=== PATIENT | female | born 1945 | race Caucasian/White ===

== ENCOUNTER 2025-01-24 12:59 | Inpatient (IN) | payer MEDICARE, BC ==
[~2025-01-24] VITALS: Ht 165.1 cm; Wt 88.5 kg
[2025-01-24 13:28] LABS: PLATELET COUNT (AUTO) 173 K/uL (179-408); RED BLOOD CELL COUNT(AUTO) 4.12 MIL/uL (3.63-4.92); RED CELL DISTRIBUTION WIDTH 13.5 % (12.3-17.7); WHITE BLOOD COUNT (AUTO) 5.0 K/uL (3.8-11.8)
[2025-01-24 13:32] LABS: CREATININE 0.9 mg/dL (0.6-1.3); SODIUM SERUM 149 mmol/L (136-145); UREA NITROGEN, BLOOD 17 mg/dL (7-18)
[2025-01-24] MEDS: IV NORMAL SALINE 500 ML BAG IV ONE (13:45)
[2025-01-24] MEDS ORDERED: MORPHINE SULFATE 2 MG/1 ML DISP.SYRIN IVP PRN (15:00)
[2025-01-24] MEDS ORDERED: ONDANSETRON 4 MG/2 ML VIAL IV PRN (15:00)
[2025-01-24] MEDS ORDERED: IV NS 1000 ML 1,000 ML IV PRN (15:00)
[2025-01-24] MEDS ORDERED: ACETAMINOPHEN 325 MG TABLET PO PRN (15:00)
[2025-01-24] MEDS ORDERED: GABA300C PO (15:36)
[2025-01-24] MEDS ORDERED: ESTR42.5 VG (15:36)
[2025-01-24] MEDS ORDERED: ROSU5TAB PO (15:36)
[2025-01-24] MEDS ORDERED: LATA2.5D2 EACHEYE (17:07)
[2025-01-24 18:04] VITALS: BP 147/95
[2025-01-24 18:12] VITALS: BP 141/69; TEMP 97.6; O2SAT 95
[2025-01-24 19:52] VITALS: BP 143/62; TEMP 98.6; O2SAT 96
[2025-01-24] MEDS: HEPARIN SODIUM,PORCINE 5,000 UNITS/ML VIAL SQ SCH (20:17)
[2025-01-24 22:25] LABS: *BILIRUBIN,URIN NEGATIVE (NEGATIVE); *BLOOD, URINE NEGATIVE (NEGATIVE); *CLARITY,URINE CLEAR (CLEAR); *COLOR,URINE YELLOW (YELLOW); *KETONES,URINE NEGATIVE (NEGATIVE); *PROTEIN,URINE NEGATIVE (NEGATIVE); *UROBILINOGEN,URINE 0.2 E.U./dl (NORMAL); LEUKOCYTE ESTERASE ,URINE NEGATIVE (NEGATIVE); NITRITE, URINE NEGATIVE (NEGATIVE); UGLUCOSE NEGATIVE (NEGATIVE)
[2025-01-25 00:28] VITALS: BP 152/62; TEMP 99; O2SAT 95
[2025-01-25 04:38] VITALS: BP 103/50; TEMP 97.9; O2SAT 94
[2025-01-25 06:38] LABS: PLATELET COUNT (AUTO) 158 K/uL (179-408); RED BLOOD CELL COUNT(AUTO) 3.61 MIL/uL (3.63-4.92); RED CELL DISTRIBUTION WIDTH 13.1 % (12.3-17.7); WHITE BLOOD COUNT (AUTO) 5.4 K/uL (3.8-11.8)
[2025-01-25 07:04] LABS: ASPARTATE AMINOTRANSFERASE 15 U/L (15-37); CREATININE 0.7 mg/dL (0.6-1.3); SODIUM SERUM 145 mmol/L (136-145); TOTAL PROTEIN, SERUM 5.9 g/dL (6.4-8.2); UREA NITROGEN, BLOOD 17 mg/dL (7-18)
[2025-01-25 08:00] VITALS: BP 130/69; TEMP 98.1; O2SAT 98
[2025-01-25 11:45] VITALS: BP_SYST 128; BP_SYST 132; BP_SYST 134; BP_DIAS 49; BP_DIAS 55; BP_DIAS 62; TEMP 99.9; O2SAT 95
[2025-01-25 12:00] VITALS: BP 128/55; TEMP 98.9; O2SAT 95
== END 2025-01-25 14:55 | disposition home or self-care (01) | DRG 641 ==
LOC: ER 12:59 → TELE3 16:50 → MEDSURG3 01-25 08:51
PROVIDERS: ADMIT Internal Medicine; ATTEND Nurse Practitioner Acute Care
DX: E86.0 Dehydration (principal); E44.1 Mild protein-calorie malnutrition; D68.59 Other primary thrombophilia; R42 Dizziness and giddiness; E87.0 Hyperosmolality and hypernatremia; E78.5 Hyperlipidemia, unspecified; E88.09 Other disorders of plasma-protein metabolism, not elsewhere classified; E66.9 Obesity, unspecified; Z68.32 Body mass index [BMI] 32.0-32.9, adult; G89.29 Other chronic pain; Z79.899 Other long term (current) drug therapy; M79.605 Pain in left leg; M79.604 Pain in right leg
CPT/HCPCS: 36415; 71045; 84100; 84443; 84484; 85025; 93307; A4606; A4663; G0378; J1644; J7040